=== PATIENT | female | born 1985 | race Two or more races ===

== ENCOUNTER 2017-05-27 20:58 | Emergency (ER) | payer SELFPAY ==
[~2017-05-27] VITALS: Ht 165.1 cm; Wt 72.6 kg
[2017-05-27 21:33] LABS: BILIRUBIN,URINE NEGATIVE (NEG); GLUCOSE,URINE NEGATIVE (NEG); NITRITE,URINE NEGATIVE (NEG); PH,URINE 5.5; PROTEIN,URINE NEGATIVE (NEG-TRACE); UROBILINOGEN,URINE 0.2 mg/dL (0.2 mg/dL)
[2017-05-27 21:38] LABS: BACTERIA,URINE FEW /HPF (0-FEW); RBC,URINE OCC /HPF (0-2); SQUAMOUS EPITHELIAL CELL,UR FEW /LPF
[2017-05-27] MEDS ORDERED: IOHEXOL 300 MG/ML 75 ML VIAL ONE (21:44)
[2017-05-27 21:53] LABS: BASO # 0.1 x10^3/uL (0.0-0.2); BASO % 1 % (0-3); EOS % 1 % (0-3); HEMATOCRIT 37.1 % (36.0-47.0); HEMOGLOBIN 12.5 g/dL (12.0-15.5); LYMPH # 2.3 x10^3/uL (1.0-4.8); LYMPH % 25 % (24-48); MEAN CORPUSCULAR HEMOGLOBIN 30 pg (25-35); MEAN CORPUSCULAR HGB CONC 34 g/dL (31-37); MEAN CORPUSCULAR VOLUME 89 fL (79-100); MONO % 7 % (0-9); NEUT % 66 % (31-73); PLATELET COUNT 263 x10^3/uL (140-400); RED BLOOD COUNT 4.15 x10^6/uL (3.50-5.40); RED CELL DISTRIBUTION WIDTH 12.8 % (11.5-14.5); WHITE BLOOD COUNT 9.2 x10^3/uL (4.0-11.0)
[2017-05-27 22:03] LABS: CALCIUM 8.9 mg/dL (8.5-10.1); CREATININE 0.5 mg/dL (0.6-1.0); POTASSIUM 3.4 mmol/L (3.5-5.1)
[2017-05-27 22:10] LABS: ALBUMIN 4.3 g/dL (3.4-5.0); ALBUMIN/GLOBULIN RATIO 1.3 (1.0-1.7); MAGNESIUM 2.1 mg/dL (1.8-2.4); TOTAL BILIRUBIN 0.6 mg/dL (0.2-1.0); TOTAL PROTEIN 7.6 g/dL (6.4-8.2)
[2017-05-27] MEDS ORDERED: IOHEXOL 300 MG/ML 75 ML VIAL IV ONE (22:15)
--- NOTE | 2017-05-27 22:36 | RAD ---
CT ABD PELV W/ IV CONTRST ONLY dated 05/27/2017 10:14 PM Indication: Low abdominal pain, right flank pain, pain since Thursday. Comparison: No comparison is available. Technique: Contiguous axial imaging of the abdomen and pelvis performed after the intravenous administration of 75 cc Omnipaque 300. One or more of the following individualized dose reduction techniques were utilized for this examination: 1. Automated exposure control 2. Adjustment of the mA and/or kV according to patient size 3. Use of iterative reconstruction technique Findings: Limited images of lung bases are clear. Heart size within normal limits. No pleural or pericardial effusion. Liver, spleen, pancreas, adrenal glands, gallbladder and kidneys are unremarkable. No hydronephrosis. Unopacified GI tract normal in caliber and contour. No focal bowel wall thickening. No inflammatory stranding in the mesentery. The appendix is normal in caliber. No ascites or lymphadenopathy. Images of the pelvis show nondistended urinary bladder. Uterus and adnexa are unremarkable. No free fluid or lymphadenopathy. Bone windows show no acute findings. There is grade 2 spondylolisthesis and bilateral spondylolysis at L5-S1. IMPRESSION: 1. No acute abnormality of abdomen or pelvis. Normal appendix. 2. Grade 2 spondylolisthesis and bilateral spondylolysis at L5-S1. Electronically signed by: Todd Bhandari MD (05/27/2017 10:33 PM) [facility]
--- NOTE | 2017-05-27 22:46 | PHYS DOC ---
Past Medical History Past Medical History: No Pertinent History Past Surgical History: No Surgical History Alcohol Use: None Drug Use: None Adult General Chief Complaint Chief Complaint: FLANK PAIN HPI HPI Patient is a 31 year old female presenting to the emergency department for evaluation of lower abdominal pain vaginal pain vaginal bleeding. Patient says that this pain started Thursday night after having sex with her boyfriend and she has had off-and-on pain since that time and she had sex again today and it started hurting even worse with bleeding. She denies any vaginal discharge dysuria hematuria fevers chills nausea vomiting or other systemic symptoms. Review of Systems Review of Systems Constitutional: Denies fever or chills [] Eyes: Denies change in visual acuity, redness, or eye pain [] HENT: Denies nasal congestion or sore throat [] Respiratory: Denies cough or shortness of breath [] Cardiovascular: No additional information not addressed in HPI [] GI: Denies abdominal pain, nausea, vomiting, bloody stools or diarrhea [] : Denies dysuria or hematuria [] Musculoskeletal: Denies back pain or joint pain [] Integument: Denies rash or skin lesions [] Neurologic: Denies headache, focal weakness or sensory changes [] Endocrine: Denies polyuria or polydipsia [] Current Medications Current Medications Current Medications Medications (Trade) Dose Ordered Sig/Anita Start Time Stop Time Status Last Admin Dose Admin Azithromycin (Zithromax) 1,000 mg 1X ONCE 05/27/17 23:30 05/27/17 23:31 UNV Ceftriaxone Sodium (Rocephin Im) 250 mg 1X ONCE 05/27/17 23:30 05/27/17 23:31 UNV Iohexol (Omnipaque 300 Mg/ml) 75 ml 1X ONCE 05/27/17 22:15 05/27/17 22:16 UNV 05/27/17 22:20 75 ML Physical Exam Physical Exam Constitutional: Well developed, well nourished, no acute distress, non-toxic appearance. [] HENT: Normocephalic, atraumatic, bilateral external ears normal, oropharynx moist, no oral exudates, nose normal. [] Eyes: PERRLA, EOMI, conjunctiva normal, no discharge. [] Neck: Normal range of motion, no tenderness, supple, no stridor. [] Cardiovascular:Heart rate regular rhythm, no murmur [] Lungs & Thorax: Bilateral breath sounds clear to auscultation [] Abdomen: Bowel sounds normal, soft, no tenderness, no masses, no pulsatile masses. [] Pelvic exam revealed thick dark white vaginal discharge, cervical irritation but no bleeding. Mild cervical motion tenderness but no adnexal tenderness. Back: No tenderness, no CVA tenderness. [] Current Patient Data Vital Signs Vital Signs Date Time Temp Pulse Resp B/P (MAP) Pulse Ox O2 Delivery O2 Flow Rate FiO2 05/27/17 21:45 63 17 127/82 (97) 99 Room Air 05/27/17 21:15 98.7 98.7 Lab Values Laboratory Tests Test 05/27/17 21:25 05/27/17 21:27 05/27/17 21:40 Urine Collection Type Unknown Urine Color Yellow Urine Clarity Clear Urine pH 5.5 Urine Specific Hood 1.015 Urine Protein Negative mg/dL (NEG-TRACE) Urine Glucose (UA) Negative mg/dL (NEG) Urine Ketones (Stick) Negative mg/dL (NEG) Urine Blood Moderate (NEG) Urine Nitrite Negative (NEG) Urine Bilirubin Negative (NEG) Urine Urobilinogen Dipstick 0.2 mg/dL (0.2 mg/dL) Urine Leukocyte Esterase Moderate (NEG) Urine RBC Occ /HPF (0-2) Urine WBC 11-20 /HPF (0-4) Urine Squamous Epithelial Cells Few /LPF Urine Bacteria Few /HPF (0-FEW) Urine Mucus Mod /LPF POC Urine HCG, Qualitative Hcg negative (Negative) White Blood Count 9.2 x10^3/uL (4.0-11.0) Red Blood Count 4.15 x10^6/uL (3.50-5.40) Hemoglobin 12.5 g/dL (12.0-15.5) Hematocrit 37.1 % (36.0-47.0) Mean Corpuscular Volume 89 fL (79-100) Mean Corpuscular Hemoglobin 30 pg (25-35) Mean Corpuscular Hemoglobin Concent 34 g/dL (31-37) Red Cell Distribution Width 12.8 % (11.5-14.5) Platelet Count 263 x10^3/uL (140-400) Neutrophils (%) (Auto) 66 % (31-73) Lymphocytes (%) (Auto) 25 % (24-48) Monocytes (%) (Auto) 7 % (0-9) Eosinophils (%) (Auto) 1 % (0-3) Basophils (%) (Auto) 1 % (0-3) Neutrophils # (Auto) 6.1 x10^3uL (1.8-7.7) Lymphocytes # (Auto) 2.3 x10^3/uL (1.0-4.8) Monocytes # (Auto) 0.7 x10^3/uL (0.0-1.1) Eosinophils # (Auto) 0.1 x10^3/uL (0.0-0.7) Basophils # (Auto) 0.1 x10^3/uL (0.0-0.2) Sodium Level 141 mmol/L (136-145) Potassium Level 3.4 mmol/L (3.5-5.1) L Chloride Level 105 mmol/L (98-107) Carbon Dioxide Level 28 mmol/L (21-32) Anion Gap 8 (6-14) Blood Urea Nitrogen 8 mg/dL (7-20) Creatinine 0.5 mg/dL (0.6-1.0) L Estimated GFR (Cockcroft-Gault) 143.0 BUN/Creatinine Ratio 16 (6-20) Glucose Level 97 mg/dL (70-99) Calcium Level 8.9 mg/dL (8.5-10.1) Magnesium Level 2.1 mg/dL (1.8-2.4) Total Bilirubin 0.6 mg/dL (0.2-1.0) Aspartate Amino Transferase (AST) 19 U/L (15-37) Alanine Aminotransferase (ALT) 38 U/L (14-59) Alkaline Phosphatase 59 U/L (46-116) Total Protein 7.6 g/dL (6.4-8.2) Albumin 4.3 g/dL (3.4-5.0) Albumin/Globulin Ratio 1.3 (1.0-1.7) Laboratory Tests 05/27/17 21:40 Laboratory Tests 05/27/17 21:40 Microbiology 05/27/17 Wet Prep - Final, Complete EKG EKG [] Radiology/Procedures Radiology/Procedures CT ABD PELV W/ IV CONTRST ONLY dated 05/27/2017 10:14 PM Indication: Low abdominal pain, right flank pain, pain since Thursday. Comparison: No comparison is available. Technique: Contiguous axial imaging of the abdomen and pelvis performed after the intravenous administration of 75 cc Omnipaque 300. One or more of the following individualized dose reduction techniques were utilized for this examination: 1. Automated exposure control 2. Adjustment of the mA and/or kV according to patient size 3. Use of iterative reconstruction technique Findings: Limited images of lung bases are clear. Heart size within normal limits. No pleural or pericardial effusion. Liver, spleen, pancreas, adrenal glands, gallbladder and kidneys are unremarkable. No hydronephrosis. Unopacified GI tract normal in caliber and contour. No focal bowel wall thickening. No inflammatory stranding in the mesentery. The appendix is normal in caliber. No ascites or lymphadenopathy. Images of the pelvis show nondistended urinary bladder. Uterus and adnexa are unremarkable. No free fluid or lymphadenopathy. Bone windows show no acute findings. There is grade 2 spondylolisthesis and bilateral spondylolysis at L5-S1. IMPRESSION: 1. No acute abnormality of abdomen or pelvis. Normal appendix. 2. Grade 2 spondylolisthesis and bilateral spondylolysis at L5-S1. Electronically signed by: Todd Bhandari MD (05/27/2017 10:33 PM) [facility] DICTATED and SIGNED BY: TODD BHANDARI MD DATE: 05/27/172229 Course & Med Decision Making Course & Med Decision Making Patient has benign abdominal exam and no obvious signs of PID. She walks with normal gait and she has no leukocytosis so she will be discharged after getting Zithromax and Rocephin. Her partner was also treated here with Rocephin Zithromax and Flagyl. Patient was told to avoid sexual activity for one week will she was being treated with Flagyl and to follow with a [employer] and come back to the ED sooner with worsening pain fevers vomiting or other general concerns. Aware and agreeable with plan for discharge and verbalized understanding of the need for short-term follow-up and strict ED return precautions discussed as above. Dragon Disclaimer Dragon Disclaimer This electronic medical record was generated, in whole or in part, using a voice recognition dictation system. Departure Departure Impression: Primary Impression: Abdominal pain Additional Impression: Vaginal trichomoniasis Disposition: HOME, SELF-CARE Condition: STABLE Referrals: NO PCP (PCP) SEBLE GUZMAN Jr, MD Scripts Metronidazole (FLAGYL) 500 Mg Tablet 1 TAB PO BID, #14 TAB Prov: KIMBERLY FLORES DO 05/27/17 Problem Qualifiers Primary Impression: Abdominal pain Abdominal location: lower abdomen, unspecified Qualified Codes: R10.30 - Lower abdominal pain, unspecified KIMBERLY FLORES DO May 27, 2017 22:46
[2017-05-27] MEDS ORDERED: METR500T PO (23:16)
[2017-05-27] MEDS ORDERED: cefTRIAXone IM 250 MG VIAL IM ONE ×2 (23:36→23:45)
[2017-05-27 23:45] VITALS: BP 130/77
[2017-05-27] MEDS ORDERED: AZITHROMYCIN 250 MG TABLET. PO ONE (23:45)
[2017-05-27] MEDS ORDERED: CONTRAST GIVEN MC PRN (23:45)
== END 2017-05-27 23:45 | disposition home or self-care (01) ==
LOC: ER 20:58
DX: A59.01 Trichomonal vulvovaginitis (principal)
CPT/HCPCS: 36415; 74177; 80053; 81001; 81025; 83735; 85025; 87086; 87491; 87591; 96372; 99285; J0696; Q0111; Q0144; Q9967

== ENCOUNTER 2021-10-18 17:02 | Emergency (ER) | payer SELFPAY ==
[~2021-10-18] VITALS: Ht 167.6 cm; Wt 65.9 kg
[~2021-10-18 17:02] MED LIST: METR500T PO
--- NOTE | 2021-10-18 20:19 | PHYS DOC ---
Past Medical History Past Medical History: No Pertinent History Past Surgical History: No Surgical History Smoking Status: Never Smoker Alcohol Use: None Drug Use: None General Adult EDM: Chief Complaint: CHEST PAIN-NON CARDIAC NATURE HPI: HPI: 35-year-old female who takes no prescription medications presents with a chief complaint of chest pain. Patient states she has had chest pain for 1 month. States she woke up 070 0 hours with chest discomfort. Patient's pain is substernal it does not radiate. Patient states pain is exacerbated with deep breaths. Patient denies any associated nausea vomiting or diaphoresis. Patient states pain has been constant throughout the day fluctuates in intensity 9 out of 10 at its worst but currently a 4 out of 10. Review of Systems: Review of Systems: Constitutional: Denies fever or chills. [] Eyes: Denies change in visual acuity. [] HENT: Denies nasal congestion or sore throat. [] Respiratory: Denies cough or shortness of breath. [] Cardiovascular: Denies chest pain or edema. [] GI: Denies abdominal pain, nausea, vomiting, bloody stools or diarrhea. [] : Denies dysuria. [] Musculoskeletal: Denies back pain or joint pain. [] Integument: Denies rash. [] Neurologic: Denies headache, focal weakness or sensory changes. [] Endocrine: Denies polyuria or polydipsia. [] Lymphatic: Denies swollen glands. [] Psychiatric: Denies depression or anxiety. [] Heart Score: C/O Chest Pain: Yes HEART Score for Chest Pain: HEART Score for Chest Pain Response (Comments) Value History Slighlty/Non-Suspicious 0 ECG Normal 0 Age < 45 0 Risk Factors No Risk Factors 0 Troponin < Normal Limit 0 Total 0 Risk Factors: Risk Factors: DM, Current or recent (<one month) smoker, HTN, HLP, family history of CAD, obesity. Risk Scores: Score 0 - 3: 2.5% MACE over next 6 weeks - Discharge Home Score 4 - 6: 20.3% MACE over next 6 weeks - Admit for Clinical Observation Score 7 - 10: 72.7% MACE over next 6 weeks - Early Invasive Strategies Allergies: Allergies: Allergies Coded Allergies Type Severity Reaction Last Updated Verified No Known Drug Allergies 05/27/17 No Physical Exam: PE: Constitutional: Well developed, well nourished, no acute distress, non-toxic appearance. [] HENT: Normocephalic, atraumatic, bilateral external ears normal, oropharynx moist, no oral exudates, nose normal. [] Eyes: PERRLA, EOMI, conjunctiva normal, no discharge. [] Neck: Normal range of motion, no tenderness, supple, no stridor. [] Cardiovascular:Heart rate regular rhythm, no murmur [] Lungs & Thorax: Bilateral breath sounds clear to auscultation [] Abdomen: Bowel sounds normal, soft, no tenderness, no masses, no pulsatile masses. [] Skin: Warm, dry, no erythema, no rash. [] Back: No tenderness, no CVA tenderness. [] Extremities: No tenderness, no cyanosis, no clubbing, ROM intact, no edema. [] Neurologic: Alert and oriented X 3, normal motor function, normal sensory function, no focal deficits noted. [] Psychologic: Affect normal, judgement normal, mood normal. [] Current Patient Data: Vital Signs: Vital Signs Date Time Temp Pulse Resp B/P (MAP) Pulse Ox O2 Delivery O2 Flow Rate FiO2 10/18/21 17:51 98.5 88 24 95/56 (69) 100 Room Air 98.5 EKG: EKG: [] Performed at 1822 Rate 76 Sinus rhythm not acute [place] Radiology/Procedures: Radiology/Procedures: [] Course & Med Decision Making: Course & Med Decision Making Pertinent Labs and Imaging studies reviewed. (See chart for details) [] Patient was evaluated for chief complaint. Work-up consisted of laboratory analysis radiologic imaging and EKG. Results reviewed and discussed with patient no acute abnormalities. Unknown cause of patient's chest discomfort. EKG was [id number]. Patient is currently stable. Will refer patient to cardiology. Edgar Disclaimer: Dragabraham Disclaimer: This electronic medical record was generated, in whole or in part, using a voice recognition dictation system. Departure Departure Impression: Primary Impression: Chest pain Additional Impression: Ntpae-Llmtqjdny-Uvtbh (WPW) pattern seen on electrocardiography Disposition: HOME / SELF CARE / HOMELESS Condition: STABLE Referrals: NO PCP (PCP) SEBLE MORGAN MD Patient Instructions: Chest Pain (Nonspecific), Fnsfy-Qipnzpunw-Ospra Syndrome MONICA SOOD I DO Oct 18, 2021 20:19
[2021-10-18 20:37] LABS: BASO # 0.1 x10^3/uL (0.0-0.2); BASO % 1 % (0-3); EOS # 0.1 x10^3/uL (0.0-0.7); EOS % 1 % (0-3); HEMATOCRIT 38.1 % (36.0-47.0); HEMOGLOBIN 13.5 g/dL (12.0-15.5); LYMPH # 2.6 x10^3/uL (1.0-4.8); LYMPH % 27 % (24-48); MEAN CORPUSCULAR HEMOGLOBIN 31 pg (25-35); MEAN CORPUSCULAR HGB CONC 35 g/dL (31-37); MEAN CORPUSCULAR VOLUME 88 fL (79-100); MONO # 0.6 x10^3/uL (0.0-1.1); MONO % 6 % (0-9); NEUT # 6.5 x10^3/uL (1.8-7.7); NEUT % 66 % (31-73); PLATELET COUNT 345 x10^3/uL (140-400); RED BLOOD COUNT 4.35 x10^6/uL (3.50-5.40); RED CELL DISTRIBUTION WIDTH 12.4 % (11.5-14.5); WHITE BLOOD COUNT 9.8 x10^3/uL (4.0-11.0)
[2021-10-18 20:44] LABS: CALCIUM 8.7 mg/dL (8.5-10.1); CREATININE 0.6 mg/dL (0.6-1.0); GFR 113.1; POTASSIUM 3.7 mmol/L (3.5-5.1)
[2021-10-18 20:50] LABS: ALBUMIN/GLOBULIN RATIO 1.1 (1.0-1.7); TOTAL BILIRUBIN 0.3 mg/dL (0.2-1.0); TOTAL PROTEIN 7.8 g/dL (6.4-8.2)
--- NOTE | 2021-10-18 21:24 | RAD ---
AP chest x-ray HISTORY: Chest pain. FINDINGS: Heart size normal. Mediastinal silhouette is normal. No pneumothorax, pulmonary opacities o r pleural effusions. Bones are unremarkable. IMPRESSION: No acute process. Electronically signed by: Nikhil Fields MD (10/18/2021 9:22 PM) [facility] [place]
[2021-10-18 21:48] VITALS: BP 139/92
--- NOTE | 2021-10-19 01:46 | EKG ---
[facility] [address] [place] [id number] Test Date: 2021-10-18 Test Time: 18:22:35 Pat Name: ALECIA QUEZADA Department: Room: Gender: F Planner Intern: KRANTHI : 1985 Requested By: MONICA SOOD Order Number: [id number] Reading MD: Roberth Martel Measurements Intervals [place] Rate: 76 P: 0 OR: 58 QRS: 15 QRSD: 234 T: -31 QT: 474 QTc: 533 Interpretive Statements SINUS RHYTHM NON SPECIFIC ST-T WAVE CHANGES POSSIBLE WPW PATTERN, TYPE A Electronically Signed On 10-21-2021 12:11:49 APPEALS COORDINATOR by Roberth Martel
== END 2021-10-18 22:05 | disposition home or self-care (01) ==
LOC: ER 17:02
DX: R07.2 Precordial pain (principal); I45.6 Pre-excitation syndrome
CPT/HCPCS: 36415; 71045; 80053; 81025; 84484; 85025; 85379; 93005; 99285-25